=== PATIENT | male | born 1935 | race Caucasian/White ===

== ENCOUNTER 2017-11-25 05:41 | Observation (INO) | payer OTHER ==
[2017-11-25] MEDS ORDERED: morphINE PF 5 MG/10 ML INJ IT ONE (06:16)
[2017-11-25] MEDS ORDERED: ceFAZolin 2 GM/SWFI 2 GM/20 ML SYR IVP ONE (06:16)
[2017-11-25] MEDS ORDERED: GABAPENTIN 300 MG CAP PO ONE (06:16)
[2017-11-25] MEDS ORDERED: ACETAMINOPHEN 500 MG TAB PO ONE (06:16)
[2017-11-25] MEDS ORDERED: LR 1,000 ML IV ONE (06:24)
--- NOTE | 2017-11-25 06:40 | CPEKG ---
Heart Rate: 123 RR Interval: 488 QRSD Interval: 82 QT Interval: 324 QTC Interval: 464 QRS Jackson: 47 T Wave Jackson: 42 EKG Severity - ABNORMAL ECG - EKG Impression: ATRIAL FIBRILLATION, V-RATE 94-169 Electronically Signed By: Wilbur Osborn 26-Nov-2017 17:28:21
[2017-11-25] MEDS ORDERED: THROMBIN (BOVINE) 20,000 UNIT VIAL TP ONE (07:08)
[2017-11-25] MEDS ORDERED: CHLORHEXIDINE GLUC HIBICLENS 118 ML BTL TP ONE (07:08)
[2017-11-25] MEDS ORDERED: CITRATE DEXTROSE SOLN 500 ML BAG ONE (07:09)
[2017-11-25] MEDS ORDERED: BUPIVACAINE 0.25% 30 ML SDV ONE (07:09)
[2017-11-25] MEDS ORDERED: BACITRACIN 50,000 UNITS/10 ML SYR IRR ONE (07:09)
--- NOTE | 2017-11-25 07:29 | PDHPUP ---
History & Physical Update H&P update statement: This history and physical update is based on an assessment of the patient which was completed after admission or registration (within 24 hours), but prior to the surgery/procedure. H&P update: H&P reviewed & patient examined H&P changes: The patient was found to be in a fib this morning on the monitor technician without any symptoms. Cardiology has been called and we will make a determination on surgery based on his cardiac findings.
[2017-11-25 08:02] LABS: PLATELET COUNT 194 10^3/uL (150-400)
--- NOTE | 2017-11-25 09:42 | PDHPUP ---
History & Physical Update H&P update statement: This history and physical update is based on an assessment of the patient which was completed after admission or registration (within 24 hours), but prior to the surgery/procedure. H&P update: H&P reviewed & patient examined (I spoke with Cardiology Dr Ashley and they will send him on on medications for rate control, including anti- coagulation. We will reschedule him for surgery in a few weeks when he has been cleared. They understand and all questions answered.)
--- NOTE | 2017-11-25 10:15 | ECHO ---
[email or web address] [address] [address] Main: [phone] Fax: Transthoracic Echocardiogram Name: JESSICA LEMOS MR#: [id number] Study Date: 11/25/2017 Study Time: 09:04 AM Date of : 1935 Age: 82 year(s) Height: 182.9 cm (72 in.) Weight: 78.93 kg (174 lb.) BSA: 2.01 m2 Gender: Male Examination: Echo Indication: New onset Atrial Fibrillation, Pre op back surgery Image Quality: Contrast: Requested by: Jami Owens BP: 122 mmHg/77 mmHg Heart Rate: Rhythm: Atrial fibrillation Indication: New onset Atrial Fibrillation, Pre op back surgery Procedure Staff Workcell Operator: Jarrett Kerns [facility] Reading Physician: Stephanie Ashley Requesting Provider: Chapin Levin Conclusions: Normal size left ventricle. No LV hypertrophy. Normal global systolic LV function. EF is 70 %. No regional wall motion abnormality. The rhythm is atrial fibrillation.. Mildly dilated right ventricle. Normal RV function. Trivial to mild mitral regurgitation. No prior echo Measurements: Chambers Valvular Assessment AV/MV Valvular Assessment TV/PV Normal Normal Normal Name Value Range Name Value Range Name Value Range Ao Laly (MM): 2.9 cm (2.2 cm-3.7 AV Vmax: 1.15 m/s (1 m/s-1.7 PV Vmax: 0.80 m/s (0.6 m/s-0.9 cm) m/s) m/s) IVSd (2D): 1.0 cm (0.6 cm-1.1 AV maxP mmHg ( - ) PV PGmax: 3 mmHg ( - ) cm) LVOT Vmax: 0.91 m/s (0.7 m/s-1.1 LVDd (2D): 3.5 cm (4.2 cm-5.9 m/s) cm) MV E Vmax: 0.72 m/s ( - ) LVDs (2D): 2.1 cm (2.1 cm-4 cm) LVPWd (2D): 1.2 cm (0.6 cm-1 cm) LVEF (2D): 70 (>=54 %) Continued Measurements: Chambers Valvular Assessment AV/MV Patient: JESSICA LEMOS Study Date: 11/25/2017 Page 1 of 2 09:04 AM Name Value Name Value LADs: 2.6 cm MV E' Septal: 0.04 m/s LADs Lon.5 cm MV E/E' Septal: 19.00 LA Area: 19.1 cm2 MV E/E' Lateral: 16.80 LA Volume: 52 ml LA Volume Index: 25.9 ml/m2 Findings: Left Ventricle: Normal size left ventricle. No LV hypertrophy. Normal global systolic LV function. EF is 70 %. No regional wall motion abnormality. The rhythm is atrial fibrillation.. Right Ventricle: Mildly dilated right ventricle. Normal RV function. Left Atrium: The left atrium is normal in size. Right Atrium: The right atrium is normal in size. Mitral Valve: The mitral valve is normal in appearance and function. Trivial to mild mitral regurgitation. Aortic Valve: The aortic valve is tri-leaflet. The aortic valve is normal in appearance. There is no aortic valve regurgitation. Tricuspid Valve: The tricuspid valve is normal in appearance and function. Trivial tricuspid valve regurgitation. Pulmonic Valve: The pulmonic valve is normal in appearance and function. Aorta: The aorta is normal. Pericardium: No pericardial effusion. Exam Comments: The heart rate during the exam is 150-160 bpm. (No Signature Object) Patient: JESSICA LEMOS Study Date: 11/25/2017 Page 2 of 2 09:04 AM [id number]
[2017-11-25] MEDS ORDERED: oxyCODONE IR 5 MG TAB PO PRN (10:38)
[2017-11-25] MEDS ORDERED: ONDANSETRON 4 MG/2 ML VIAL IVP ONE (11:30)
[2017-11-25] MEDS: METOPROLOL TARTRATE 25 MG TAB PO SCH ×2 (11:50→21:12)
[2017-11-25] MEDS ORDERED: ONDANSETRON 4 MG/2 ML VIAL IVP PRN (13:31)
[2017-11-25] MEDS ORDERED: PROMETHAZINE HCL 25 MG TAB PO PRN (13:35)
[2017-11-25 14:08] LABS: INR 1.03 (0.83-1.16); PROTIME(PATIENT) 13.7 SEC (12.0-15.0)
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
[2017-11-25] MEDS ORDERED: DIGOXIN 500 MCG/2 ML AMP IVP ONE (14:22)
[2017-11-25 14:24] LABS: CREATINE KINASE 51 IU/L (0-224)
[2017-11-25] MEDS: APIXABAN 5 MG TAB PO SCH (21:12)
[2017-11-26] MEDS: APIXABAN 5 MG TAB PO SCH (07:58)
[2017-11-26] MEDS: METOPROLOL TARTRATE 25 MG TAB PO SCH (07:58)
--- NOTE | 2017-11-26 10:09 | ASMTCASEMG ---
Living Arrangements What is your living Answers: With Spouse arrangement? Who do you live with? Type Of Residence What kind of residence do Answers: House you live in? Discharge Plan Comments Coordination Status Comments Notes: Pt is a 82 y/o man admitted for radiculopathy and spondylosis. A stress test has been ordered. Pt will most likely d/c independent when medically stable. No therapies ordered at this time. CM available for changes. Plan: Independent Date Signed: 11/26/2017 10:09 AM Electronically Signed By:BRANDI Nix
[2017-11-26] MEDS ORDERED: REGADENOSON 0.4 MG/5 ML SYR IVP ONE (11:10)
[2017-11-26 12:18] VITALS: O2SAT 94
--- NOTE | 2017-11-26 12:32 | PDCARST ---
CAR Stress Test Results Type of Stress Test: Lexiscan stress test Indication: elevated trop/AF Description of Procedure: After informed consent was obtained, pt was established to ECG, blood pressure, HR and oximetry monitoring. STRESS EKG AND HEMODYNAMIC DATA. Resting heart rate: 54 BPM. Resting ECG: SR. Resting blood pressure: 130/70 mmHg. O2 saturation at rest: 94%. Peak heart rate: 84 BPM. Peak blood pressure: 110/54 mmHg. Arrhythmias: none. Symptoms: The patient experienced no typical symptoms of angina during stress or recovery. Stress/Infusion ECG: No change in rhythm with no significant ST/T wave changes. Stress/infusion O2 saturation: 93% Impression: Uneventful Lexiscan infusion. Conclusion: Await nuclear images.
[2017-11-26] MEDS ORDERED: ACETAMINOPHEN 325 MG TAB PO PRN (12:37)
[2017-11-26] MEDS ORDERED: METHOCARBAMOL 750 MG TAB PO PRN (12:37)
[2017-11-26 13:00] VITALS: BP 107/60; PULSE 56; RESP 16; TEMP 97.7
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
[2017-11-26] MEDS ORDERED: PANTOPRAZOLE SODIUM 40 MG TAB PO SCH (21:00)
[2017-11-26] MEDS ORDERED: ASPIRIN 81 MG CHEWABLE TAB PO SCH (21:00)
[2017-11-26] MEDS ORDERED: NON-FORMULARY NEW DRUG (Esomeprazole Mag Trihydrate [Nexium] 40 MG) PO SCH (21:00)
[2017-11-26] MEDS ORDERED: BUDESONIDE/FORMOTEROL 160/4.5 60 PUFFS/MDI IH SCH (21:00)
[2017-11-26] MEDS ORDERED: PRAVASTATIN SODIUM 40 MG TAB PO SCH (21:00)
[2017-11-27] MEDS ORDERED: ASCORBIC ACID 500 MG TAB PO SCH (09:00)
== END 2017-11-26 15:30 | disposition home or self-care (01) ==
LOC: INTOOBSV 05:41 → F3N 05:41 → F2W 12:58
PROVIDERS: ADMIT Neurological Surgery; ATTEND Internal Medicine Cardiovascular Disease
DX: I48.91 Unspecified atrial fibrillation (principal); M51.16 Intervertebral disc disorders with radiculopathy, lumbar region; M47.26 Other spondylosis with radiculopathy, lumbar region; Z53.8 Procedure and treatment not carried out for other reasons; E78.5 Hyperlipidemia, unspecified; J84.9 Interstitial pulmonary disease, unspecified; Z87.81 Personal history of (healed) traumatic fracture; Z98.1 Arthrodesis status; Z82.49 Family history of ischemic heart disease and other diseases of the circulatory system; H53.2 Diplopia; B02.9 Zoster without complications
CPT/HCPCS: 70450; 78452; 93005; 93017; 93306; A9500; G0378; J0690; J2405; J2785; J0171; J2274; J7060

== ENCOUNTER 2017-12-16 07:15 | Inpatient (IN) | payer OTHER ==
[2017-12-16] MEDS ORDERED: ceFAZolin 2 GM/SWFI 2 GM/20 ML SYR IVP ONE (10:09)
[2017-12-16] MEDS ORDERED: morphINE PF 5 MG/10 ML INJ IT ONE (10:09)
[2017-12-16] MEDS ORDERED: ACETAMINOPHEN 500 MG TAB PO ONE (10:09)
[2017-12-16] MEDS ORDERED: GABAPENTIN 300 MG CAP PO ONE (10:09)
[2017-12-16] MEDS ORDERED: LR 1,000 ML IV ONE (10:10)
--- NOTE | 2017-12-16 10:19 | PDANEPAE ---
ANE History of Present Illness 82 year old male presents for Right L4/L5 TLIF w/ fusion. Patient's surgery cancelled a couple weeks ago following new onset A.Fib w/ RVR. Patient has undergone cardiac work-up and clearance since that time. ANE Past Medical History - Cardiovascular History Hx Hypertension: No Hx Arrhythmias: Yes Hx Chest Pain: No Hx Coronary Artery / Peripheral Vascular Disease: No Hx CHF / Valvular Disease: No Hx Palpitations: No Cardiovascular History Comment: afib on admit 11/25/17. admitted and worked up. hyperlipidemia. eliquis to be stopped 5 days prior to surgery - Pulmonary History Hx COPD: No Hx Asthma/Reactive Airway Disease: No Hx Recent Upper Respiratory Infection: No Hx Oxygen in Use at Home: No Hx Sleep Apnea: No Sleep Apnea Screening Result - Last Documented: Negative Pulmonary History Comment: Interstitial lung disease. hx of pulmonary nodules. recent bronchitis. no sob - Neurologic History Hx Cerebrovascular Accident: No Hx Seizures: No Hx Dementia: No - Endocrine History Hx Diabetes: No Endocrine History Comment: pre-diabetic - Renal History Hx Renal Disorders: No - Liver History Hx Hepatic Disorders: No - Neurological & Psychiatric Hx Hx Neurological and Psychiatric Disorders: No - Cancer History Hx Cancer: No - Congenital Disorder History Hx Congenital Disorders: No - GI History Hx Gastrointestinal Disorders: Yes Gastrointestinal History Comment: GERD - Other Health History Other Health History: none - Chronic Pain History Chronic Pain: No - Surgical History Prior Surgeries: with previous attempt at this surgery 11/25/17 pt was in afib and amitted to hospital. BACK SURGERY 7 YRS AGO. HERNIA REPAIR 20 YRS AGO ANE Review of Systems Review of systems is: negative Review of Systems: - Exercise capacity Exercise capacity: >=4 METS METS (RN): 4 METS ANE Patient History - Allergies Allergies/Adverse Reactions: No Known Allergies Allergy (Verified 12/08/17 11:47) - Home Medications Home medications: home medication list seen and reviewed Home Medications: Ascorbic Acid [Vitamin C 500 mg (*)] 500 mg PO DAILY 01/09/14 [Last Taken ] Budesonide/Formoterol 160/4.5 [Symbicort 160-4.5 Mcg Inh (*)] 1 puffs IH HS 03/19 [Last Taken 12/15/17] Esomeprazole Mag Trihydrate [Nexium] 40 mg PO DAILY 04/06/14 [Last Taken ] Methocarbamol [Robaxin 750 mg (*)] 750 mg PO DAILY PRN 11/24/17 [Last Taken 09/22] Pravastatin Sodium 40 mg PO HS 11/24/17 [Last Taken 12/15/17] Herbals/Supplements -Info Only 1 ea PO DAILY 11/25/17 [Last Taken Unknown] - NPO status NPO Status: no food or drink >8 hours - Anes Hx Anes Hx: no prior problems - Smoking Hx Smoking Status: Never smoked Marijuana use: No - Alcohol Use Alcohol Use: Rarely - Family Anes Hx Family Anes Hx: neg - N/A Family Hx Anesthesia Complications: none ANE Labs/Vital Signs - Vital Signs Vital Signs: reviewed preoperatively; see RN documention for details Height: 182.88 cm Weight: 78.925 kg ANE Physical Exam - Airway Neck exam: decreased ROM Mallampati Score: Class 2 Mouth exam: normal dental/mouth exam, abnormal chin - Pulmonary Pulmonary: no respiratory distress - Cardiovascular Cardiovascular: regular rate and rhythym - ASA Status ASA Status: III ANE Anesthesia Plan Anesthesia Plan: general endotracheal anesthesia Lines/Monitors: arterial line Total IV Anesthesia: No
[2017-12-16] MEDS ORDERED: THROMBIN (BOVINE) 20,000 UNIT VIAL TP ONE (10:22)
[2017-12-16] MEDS ORDERED: CHLORHEXIDINE GLUC HIBICLENS 118 ML BTL TP ONE (10:22)
[2017-12-16] MEDS ORDERED: CITRATE DEXTROSE SOLN 500 ML BAG ONE (10:23)
[2017-12-16] MEDS ORDERED: BUPIVACAINE 0.25% 30 ML SDV ONE (10:23)
[2017-12-16] MEDS ORDERED: BACITRACIN 50,000 UNITS/10 ML SYR IRR ONE (10:24)
--- NOTE | 2017-12-16 12:23 | PDHPUP ---
History & Physical Update H&P update statement: This history and physical update is based on an assessment of the patient which was completed after admission or registration (within 24 hours), but prior to the surgery/procedure. H&P update: H&P reviewed & patient examined, changes noted (Consents signed and site marked. He had a fib before his last case which was then rescheduled after Cardiac clearance. All questions answered.)
[2017-12-16] MEDS ORDERED: PROPOFOL 200 MG/20 ML VIAL ONE (12:32)
[2017-12-16] MEDS ORDERED: REMIFENTANIL HCL 1 MG VIAL ONE (12:32)
[2017-12-16] MEDS ORDERED: PROPOFOL/EMULSION 500 MG/50 ML BOTTLE IV ONE (12:32)
[2017-12-16] MEDS ORDERED: fentaNYL 100 MCG/2 ML INJ ONE ×2 (12:32→16:28)
[2017-12-16] MEDS ORDERED: ROCURONIUM 50 MG/5 ML VIAL ONE ×2 (13:29)
[2017-12-16] MEDS ORDERED: ONDANSETRON 4 MG/2 ML VIAL ONE (14:58)
[2017-12-16] MEDS ORDERED: DEXAMETHASONE 4 MG/ML VIAL ONE (14:59)
[2017-12-16] MEDS ORDERED: SUGAMMADEX SODIUM 200 MG/2 ML VIAL IVP ONE (15:31)
[2017-12-16] MEDS ORDERED: LR 500 ML IV PRN (16:22)
[2017-12-16] MEDS ORDERED: DIAZEPAM 5 MG/ML 1 ML SYR IVP PRN (16:22)
[2017-12-16] MEDS ORDERED: HYDROmorphONE/DILAUDID 2 MG/ML INJ IVP PRN ×2 (16:22→16:55)
[2017-12-16] MEDS ORDERED: ONDANSETRON 4 MG/2 ML VIAL IVP PRN ×2 (16:22→16:55)
[2017-12-16] MEDS ORDERED: PHENYLEPHRINE HCL 100 MCG/ML SYR IVP PRN (16:22)
[2017-12-16] MEDS ORDERED: NALOXONE HCL 0.4 MG/ML INJ IVP PRN (16:22)
[2017-12-16] MEDS ORDERED: HYDROmorphONE/DILAUDID 2 MG/ML INJ ONE (16:28)
[2017-12-16] MEDS: fentaNYL 100 MCG/2 ML INJ IVP PRN ×2 (16:29→16:38)
[2017-12-16] MEDS ORDERED: DIAZEPAM 5 MG/ML 1 ML SYR ONE (16:40)
[2017-12-16] MEDS ORDERED: MAGNESIUM HYDROXIDE 30 ML UDCUP PO PRN (16:55)
[2017-12-16] MEDS ORDERED: BISACODYL 10 MG SUPP PR PRN (16:55)
[2017-12-16] MEDS ORDERED: POLYETHYLENE GLYCOL 3350 17 GM PKT PO PRN (16:55)
[2017-12-16] MEDS ORDERED: LACTULOSE 20 GM/30 ML UDCUP PO PRN (16:55)
[2017-12-16] MEDS ORDERED: ONDANSETRON DISINTEGRATING 4 MG TAB PO PRN (16:55)
[2017-12-16] MEDS ORDERED: NS W/ 20 KCl/L 1,000 ML IV SCH (17:00)
--- NOTE | 2017-12-16 17:15 | POSTOPPROG ---
Post Op Note Date of Operation: 12/16/17 Surgeon: Paige Parnell Hardware Engineer: Gordo Parnell PA-C Anesthesiologist: Corey Anesthesia: GET(General Endotracheal) Pre-op Diagnosis: lumbar degenerative disc disease Post-op Diagnosis: same Indication: right leg radiculopathy Procedure: redo right L45 TLIF and posterior fusion Findings: nerve compression Inf/Abcess present in the surg proc area at time of surgery?: No Depth: Organ Space EBL: 100-500 Complications: none Drains: Cesar Castro Specimen(s): none PA Addendum - Addendum .: S: Pt awake in PACU, denies pain O: AAOx3 NAD VSS MAEx4 Motor 5/5 BLE +LT Incision dressed cdi JPx1 Briones in A: 82 yo M s/p redo right L45 TLIF and posterior fusion P: PT/OT Pain management Brace when OOB TEDs, SCDs, lovenox POD#1, can resume eliquis POD#7 after surgery Post op xrays pending Follow LAINE output SEAMUS briones in AM D/w Dr Levin Call NS with any questions
[2017-12-16] MEDS: SENNOSIDES/DOCUSATE SODIUM TAB PO SCH (20:07)
[2017-12-16] MEDS: FAMOTIDINE 20 MG TAB PO SCH (20:07)
[2017-12-16] MEDS: PRAVASTATIN SODIUM 40 MG TAB PO SCH (20:08)
[2017-12-16] MEDS: METOPROLOL TARTRATE 25 MG TAB PO SCH (20:08)
--- NOTE | 2017-12-16 21:26 | GOP ---
[f rep st] OPERATIVE REPORT DATE OF OPERATION: 12/16/2017 SURGEON: Chapin Levin MD STUNNER ANIMAL: Paige Parnell, PRIYANKA. ANESTHESIA: General. PREOPERATIVE DIAGNOSIS: 1. Right-sided L4-L5 lateral recess foraminal stenosis. 2. Right lower extremity radiculopathy. 3. History of prior right-sided L4-5 decompression. 4. Treatment refractory to nonoperative intervention. POSTOPERATIVE DIAGNOSIS: 1. Right-sided L4-L5 lateral recess foraminal stenosis. 2. Right lower extremity radiculopathy. 3. History of prior right-sided L4-5 decompression. 4. Treatment refractory to nonoperative intervention. PROCEDURE PERFORMED: 1. Posterior arthrodesis with approach to L4-L5. 2. Posterolateral fusion with bilateral pedicle screw placement at L4-L5 with a [employer] 4.7 5 system. 3. Redo right-sided hemilaminotomy with mesial facetectomy, foraminotomy, nerve decompression. 4. Right-sided L4-5 transforaminal lumbar interbody fusion with a [employer] Elite expandable titani um cage filled with morselized autograft and allograft. 5. Posterolateral fusion on the left between L4-L5 with morselized autograft and allograft. 6. Use of intraoperative 3D Stealth navigation. 7. Use of intraoperative fluoroscopy, less than 1 hour physician time. 8. Use of neuromonitoring. 9. Use of operative microscope. 10. Injection of preservative-free intrathecal narcotics. FINDINGS: SPECIMENS: None. ESTIMATED BLOOD LOSS: 100 mL. INDICATIONS: The patient is a gentleman who has undergone a prior right-sided L4-L5 hemilaminotomy w ith foraminotomy nerve decompression. The patient did quite well for a few weeks and then was worsen ing signs and symptoms. Imaging demonstrated continued lateral recess foraminal stenosis on the righ t at L4-5. After discussion of the risks, benefits, and alternatives after failing nonoperative inte rvention, we decided to proceed forth with surgery as described above. DESCRIPTION OF PROCEDURE: Patient was brought to the operating theater and underwent general endotra cheal anesthesia without complication. He had Venodynes, STELLA hose and appropriate lines placed by An esthesia. He was then flipped prone onto the Cesar table and all bony prominences inspected and pa dded. The lower lumbar previous incision was identified and infiltrated with Marcaine with epinephri ne. The incision was taken down with the scalpel blade and then using monopolar, taken down to the m idline through the lumbodorsal fascia. Subperiosteal dissection carried to the transverse process bi laterally at L4, L5. Deep retractors were placed to maintain our exposure. We attached the 3D Steal th navigation clamp to the spinous process of L4 and completed a 3D Stealth navigation spin. Using 3 D Stealth navigation, we placed the senior formulation scientist holes for the bilateral pedicle screws in L4, L5. All hole s were manually palpated with no evidence of any cortical breaches. We then tapped and placed 6.5 x 45 mm screws into the left side L4 and L5, and a 6.5 x 50 mm screw on the right L4 and L5 with [employer] 4.75 system. Another 3D Stealth navigation spin demonstrated good placement of the hardwa re. At this point, the microscope was brought into the field to assist with microscopic dissection a nd maintain illumination and magnification. Using a combination of bur tip on the drill bit and Leija krista punches, we completed a redo right-sided L4-5 hemilaminotomy with aggressive facetectomy. We co mpleted a foraminotomy and resected the scar tissue from the thecal sac and retracted it medially. T he nerve root was noted to be quite decompressed at this level. We then completed a right-sided L4-5 diskectomy after distracting the interspace. We prepared the cartilaginous endplates and measured i nterbody space. We then placed an 8 to 11 mm x 28 mm [employer]ine[employer] Elite expandable titanium cage fille d with morselized allograft and autograft anteriorly towards the midline. We packed additional morce llized autograft in the disk space with interbody fusion. We let down distraction, decorticated the bone on the left side between L4 and L5. The wound was irrigated copiously with bacitracin irrigatio n. We injected preservative-free intrathecal narcotics. We placed 2 lordotic rods into the heads of the screws between L4-L5 and secured them down with cap screws, which were then tightened per the ia kitar's setting. We placed morselized autograft and allograft in the left side between L4-5 at the posterolateral fusion. A drain was left in the subfascial space and the wound then closed in mul tiple layers using Vicryl sutures in deep layers and Dermabond for the skin. The patient's wounds we re dressed sterilely. He was then flipped supine onto the transfer cart. He was awakened, extubated , and taken to the recovery room in stable condition. There were no complications and no noted changes on neuromonitoring throughout the procedure. COMPLICATIONS: None. /[id number]/MODL
[2017-12-16] MEDS: BUDESONIDE/FORMOTEROL 160/4.5 60 PUFFS/MDI IH SCH (21:33)
[2017-12-16] MEDS: ACETAMINOPHEN 500 MG TAB PO SCH (23:02)
[2017-12-16] MEDS: POLYETHYLENE GLYCOL 3350 17 GM PKT PO SCH (23:19)
[2017-12-17] MEDS: ACETAMINOPHEN 500 MG TAB PO SCH ×3 (05:21→21:12)
[2017-12-17] MEDS: FAMOTIDINE 20 MG TAB PO SCH ×2 (08:15→21:11)
[2017-12-17] MEDS: ASCORBIC ACID 500 MG TAB PO SCH (08:17)
[2017-12-17] MEDS: PANTOPRAZOLE SODIUM 40 MG TAB PO SCH (08:18)
[2017-12-17] MEDS: METOPROLOL TARTRATE 25 MG TAB PO SCH ×2 (08:31→21:13)
[2017-12-17] MEDS: POLYETHYLENE GLYCOL 3350 17 GM PKT PO SCH ×3 (08:31→21:10)
[2017-12-17] MEDS: SENNOSIDES/DOCUSATE SODIUM TAB PO SCH ×2 (08:31→21:12)
--- NOTE | 2017-12-17 10:15 | NEUSURGPN ---
Assessment/Plan: S: Doing great, currently no back pain or leg pain. Eating, drinking, voiding well. O: AAOx3 NAD VSS MAEx4 Motor 5/5 BLE +LT Incision dressed cdi JPx1 output 260 overnight A: 82 yo M POD #1 redo right L45 TLIF and posterior fusion P: PT/OT Pain management Brace when OOB TEDs, SCDs, lovenox to start today, can resume eliquis POD#7 after surgery Post op xrays pending today Remove LAINE tomorrow- keep today Astorga out D/w Dr Levin Call NS with any questions Catheter Insertion Date: 12/16/17 - Physician Discussed Patient with : Ollie Neurosurgery Physical Exam - Vitals, I&O, Labs I and O 12/16/17 12/17/17 12/18/17 05:59 05:59 05:59 Intake Total 3575 Output Total 1835 920 Balance 1740 -920 Weight 78.925 kg Intake: Oral (ml) 1875 IV Intake (ml) 1700 Output: Urine (ml) 1500 850 Catheter 1500 850 Estimated Blood Loss (ml) 75 LAINE Drain Output (ml) 260 70 Left Back Cesar Castro 260 70 Other: Intake Quantity Yes Sufficient Number of Voids Catheter 1 Vital Signs Temp Pulse Resp BP Pulse Ox 36.6 C 55 L 16 91/59 L 96 12/17/17 07:31 12/17/17 08:31 12/17/17 07:31 12/17/17 08:31 12/17/17 07:31 ICD10 Worksheet Patient Problems: Problems Problem Status Onset Afib Acute Compression fracture Acute
--- NOTE | 2017-12-17 11:07 | PDMN ---
Medical Necessity Medical necessity: IP surgery per [facility] cpt [id number]
[2017-12-17] MEDS: diphenhydrAMINE 25 MG CAP PO PRN ×2 (11:11→21:11)
[2017-12-17] MEDS: METHOCARBAMOL 750 MG TAB PO PRN ×2 (11:18→18:51)
--- NOTE | 2017-12-17 11:45 | ASMTCMCOM ---
CM Note CM Note Notes: Patient is POD #1 redo R L4-5 TLIF and posterior fusion. He has a LAINE drain which should be removed tomorrow. Initial PT eval recommends home with supportive family. Patient lives with his and has a daughter nearby. Case Management will follow should any discharge needs arise. Date Signed: 12/17/2017 11:44 AM Electronically Signed By:Nan Hogue RN
--- NOTE | 2017-12-17 13:38 | POSTANESTH ---
Post Anesthetic Evaluation Cardiovascular Status: Normal, Stable, Similar to Pre-Op Cond Respiratory Status: Normal, Stable, Similar to Pre-op Cond. Level of Consciousness/Mental Status: Can Participate in Eval, Alert and Oriented Pain Control: Adequate, Prn Tx Ordered Nausea/Vomiting Control: Adequate, Prn Tx Ordered Complications Possibly Related to Anesthesia: None Noted (Patient doing exceptionally well in PACU prior to discharge to the floor. Patient very thankful to all the care he had received from the [facility] team.)
[2017-12-17] MEDS ORDERED: CALCIUM CARBONATE 500 MG CHEWABLE TAB PO PRN (17:51)
[2017-12-17] MEDS: oxyCODONE IR 5 MG TAB PO PRN ×2 (17:56→18:50)
[2017-12-17] MEDS: ENOXAPARIN 40 MG/0.4 ML SYR SC SCH (18:20)
[2017-12-17] MEDS: BUDESONIDE/FORMOTEROL 160/4.5 60 PUFFS/MDI IH SCH (20:40)
[2017-12-17] MEDS: PRAVASTATIN SODIUM 40 MG TAB PO SCH (21:14)
[2017-12-18] MEDS: ACETAMINOPHEN 500 MG TAB PO SCH ×3 (06:01→22:16)
[2017-12-18] MEDS: oxyCODONE IR 5 MG TAB PO PRN ×3 (06:02→17:50)
[2017-12-18] MEDS: METHOCARBAMOL 750 MG TAB PO PRN ×2 (06:02→23:17)
--- NOTE | 2017-12-18 07:06 | NEUSURGPN ---
Date of Surgery: 12/16/17 Post Op Day: 2 Assessment/Plan: Assessment: 82 yo M POD #2 redo right L45 TLIF and posterior fusion Plan: -continue PT/OT -pain management still being finalized -brace when OOB -TEDs, SCDs, on lovenox, can resume Eliquis POD#7 after surgery -post op xrays look fine -remove LAINE today-order in place -briones out-voiding well -D/w Dr Levin -call NS with any questions -dc traffic and transport planner to see for placement Subjective: Awake and alert. Pt with some incisional back pain. Pt with RLE pain that is better. No lee/neck/chest/abd or gu complaints. Objective: AAOx3 NAD AFVSS MAEx4 Motor 5/5 BLE +LT Incision dressed cdi Neuro Check Frequency: per routine Urinary Catheter in Place: No Catheter Insertion Date: 12/16/17 - Physician Discussed Patient with : Ollie Neurosurgery Physical Exam - Vitals, I&O, Labs I and O 12/17/17 12/18/17 12/19/17 05:59 05:59 05:59 Intake Total 3575 1999 Output Total 1835 2725 Balance 1740 -725 Weight 78.925 kg Intake: Oral (ml) 1875 2000 IV Intake (ml) 1700 Output: Urine (ml) 1500 2575 Catheter 1500 1925 Urinal 650 Estimated Blood Loss (ml) 75 LAINE Drain Output (ml) 260 150 Left Back Cesar Castro 260 150 Other: Intake Quantity Yes Yes Sufficient Number of Voids Catheter 1 1 Urinal 1 Bladder Scan Volume (ml) Catheter 821 Vital Signs Temp Pulse Resp BP Pulse Ox 36.8 C 61 16 101/52 L 95 12/18/17 03:10 12/18/17 03:10 12/18/17 03:10 12/18/17 03:10 12/18/17 03:10 ICD10 Worksheet Patient Problems: Problems Problem Status Onset Afib Acute Compression fracture Acute
--- NOTE | 2017-12-18 09:28 | ASMTCMCOM ---
CM Note CM Note Notes: OT/PT continue to rec home w family support. Spoke w pt RN Delores who has no concerns. This CM spoke w pt and and they are not interested in a SNF d/c. Anticipate pt will d/c when medically stable. No CM d/c needs identified at this time. CM available for changes/needs. Date Signed: 12/18/2017 09:28 AM Electronically Signed By:NIKO Rodriguez
[2017-12-18] MEDS: FAMOTIDINE 20 MG TAB PO SCH ×2 (11:54→22:16)
[2017-12-18] MEDS: ENOXAPARIN 40 MG/0.4 ML SYR SC SCH (11:54)
[2017-12-18] MEDS: ASCORBIC ACID 500 MG TAB PO SCH (11:54)
[2017-12-18] MEDS: POLYETHYLENE GLYCOL 3350 17 GM PKT PO SCH ×3 (11:54→22:17)
[2017-12-18] MEDS: SENNOSIDES/DOCUSATE SODIUM TAB PO SCH ×2 (11:55→22:16)
[2017-12-18] MEDS: PANTOPRAZOLE SODIUM 40 MG TAB PO SCH (11:55)
[2017-12-18] MEDS: METOPROLOL TARTRATE 25 MG TAB PO SCH ×2 (12:25→22:14)
[2017-12-18] MEDS: PRAVASTATIN SODIUM 40 MG TAB PO SCH (22:16)
[2017-12-19] MEDS: BUDESONIDE/FORMOTEROL 160/4.5 60 PUFFS/MDI IH SCH (00:19)
[2017-12-19] MEDS: oxyCODONE IR 5 MG TAB PO PRN ×2 (01:12→08:09)
[2017-12-19] MEDS: ACETAMINOPHEN 500 MG TAB PO SCH (05:56)
[2017-12-19 07:57] VITALS: BP 98/48; PULSE 65; RESP 14; TEMP 97.5; O2SAT 91
[2017-12-19] MEDS: FAMOTIDINE 20 MG TAB PO SCH (08:09)
[2017-12-19] MEDS: ENOXAPARIN 40 MG/0.4 ML SYR SC SCH (08:09)
[2017-12-19] MEDS: SENNOSIDES/DOCUSATE SODIUM TAB PO SCH (08:10)
[2017-12-19] MEDS: ASCORBIC ACID 500 MG TAB PO SCH (08:10)
[2017-12-19] MEDS: PANTOPRAZOLE SODIUM 40 MG TAB PO SCH (08:10)
[2017-12-19] MEDS: METOPROLOL TARTRATE 25 MG TAB PO SCH (08:14)
--- NOTE | 2017-12-19 09:15 | NEUSURGPN ---
Assessment/Plan: Assessment: 82 yo M POD #3 redo right L45 TLIF and posterior fusion Plan: -continue PT/OT -pain management - continue current regimen -brace when OOB -TEDs, SCDs, on lovenox, can resume Eliquis POD#7 after surgery -post op xrays look fine -briones out-voiding well -Pt had severe pain with ambulation and became unsteady on his feet last afternoon just prior to anticipated dc. We were concerned about his severe pain and therefore discharge was held in order to rule out any surgical complications. If patient is improved this morning after therapy evaluation, can work on dc to home today. -call NS with any questions -Pt and his were in agreement and understanding of the plan Subjective: Pt resting at edge of bed working with therapies. States he has more right leg nerve pain now than he did immediately post op, but is able to move ok this AM. Objective: AAOx3 NAD VSS MAEx4 Motor 5/5 BLE +LT Incision cdi Urinary Catheter in Place: No Catheter Insertion Date: 12/16/17 Neurosurgery Physical Exam - Vitals, I&O, Labs I and O 12/18/1718 12/20/17 05:59 05:59 05:59 Intake Total 2000 500 Output Total 2725 1730 Balance -725 -1730 500 Intake: Oral (ml) 2000 500 Output: Urine (ml) 2575 1675 Catheter 1925 Urinal 650 1675 LAINE Drain Output (ml) 150 55 Left Back Cesar Castro 150 55 Other: Intake Quantity Yes Yes Sufficient Number of Voids Catheter 1 Toilet 1 Urinal 1 1 Bladder Scan Volume (ml) Catheter 821 Vital Signs Temp Pulse Resp BP Pulse Ox 36.4 C 65 14 98/48 L 91 L 12/19/17 07:54 12/19/17 08:14 12/19/17 07:54 12/19/17 08:14 12/19/17 07:54 ICD10 Worksheet Patient Problems: Problems Problem Status Onset Afib Acute Compression fracture Acute
[2017-12-19] MEDS: POLYETHYLENE GLYCOL 3350 17 GM PKT PO SCH (09:57)
[2017-12-19] MEDS: METHOCARBAMOL 750 MG TAB PO PRN (10:39)
--- NOTE | 2017-12-19 14:30 | ASMTCMCOM ---
CM Note CM Note Notes: Pt medically stable for d/c, no CM d/c needs identified. Date Signed: 12/19/2017 02:29 PM Electronically Signed By:NIKO Rodriguez
== END 2017-12-19 12:52 | disposition home or self-care (01) | DRG 460 ==
LOC: EEVIPCON 10:02 → F3N 10:02
PROVIDERS: ADMIT Neurological Surgery; ATTEND Neurological Surgery
PROC: 0SG00AJ Fusion of Lumbar Vertebral Joint with Interbody Fusion Device, Posterior Approach, Anterior Column, Open Approach (ICD-10-PCS; principal; 2017-12-16 11:30)
PROC: 4A1004G Monitoring of Central Nervous Electrical Activity, Intraoperative, Open Approach (ICD-10-PCS; principal; 2017-12-16 11:30)
PROC: 8E0WXBZ Computer Assisted Procedure of Trunk Region (ICD-10-PCS; principal; 2017-12-16 11:30)
PROC: 01NB0ZZ Release Lumbar Nerve, Open Approach (ICD-10-PCS; principal; 2017-12-16 11:30)
DX: M51.36 Other intervertebral disc degeneration, lumbar region (principal); M47.26 Other spondylosis with radiculopathy, lumbar region; E78.5 Hyperlipidemia, unspecified; I48.91 Unspecified atrial fibrillation; K21.9 Gastro-esophageal reflux disease without esophagitis; Z79.01 Long term (current) use of anticoagulants
CPT/HCPCS: 97116-GP; 97161-GP; 97165-GO; 97530-GP; 97535-GO; C1713; C1762; G8978-GP-CI; G8979-GP-CI; G8980-GP-CI; G8984-GO-CK; G8985-GO-CI; G8988-GO-CI; G8989-GO-CI; J0171; J0690; J1100; J1170; J1650; J2270; J2274; J2405; J2704; J3010; J3360; J7060

== ENCOUNTER → 2018-01-23 | Outpatient (CLI) | payer OTHER | LOC: FIMAGING 15:25 | PROVIDERS: ATTEND Physician Assistant Surgical | DX: Z09 Encounter for follow-up examination after completed treatment for conditions other than malignant neoplasm (principal); Z98.1 Arthrodesis status ==

== ENCOUNTER → 2018-03-09 | Outpatient (CLI) | payer OTHER | LOC: FIMAGING 16:07 | PROVIDERS: ATTEND Physician Assistant | DX: Z09 Encounter for follow-up examination after completed treatment for conditions other than malignant neoplasm (principal); Z98.1 Arthrodesis status ==

== ENCOUNTER → 2018-06-10 | Outpatient (CLI) | payer OTHER | LOC: FIMAGING 15:29 | PROVIDERS: ATTEND Physician Assistant Surgical | DX: Z09 Encounter for follow-up examination after completed treatment for conditions other than malignant neoplasm (principal); Z98.1 Arthrodesis status; S22.080A Wedge compression fracture of T11-T12 vertebra, initial encounter for closed fracture ==

== ENCOUNTER 2018-09-24 11:34 | Outpatient (CLI) | payer OTHER ==
[2018-09-24] MEDS ORDERED: fentaNYL 100 MCG/2 ML INJ IVP PRN (12:03)
[2018-09-24] MEDS ORDERED: MEPERIDINE 25 MG/ML SYR IVP PRN (12:03)
[2018-09-24] MEDS ORDERED: NALOXONE HCL 0.4 MG/ML INJ IVP PRN (12:03)
[2018-09-24] MEDS ORDERED: MIDAZOLAM 2 MG/2 ML VIAL IVP PRN (12:03)
[2018-09-24] MEDS ORDERED: FLUMAZENIL 0.5 MG/5 ML MDV IVP PRN (12:03)
[2018-09-24] MEDS ORDERED: NS 1,000 ML IV SCH (12:15)
--- NOTE | 2018-09-24 12:42 | PDGENHP ---
History & Physical Chief Complaint: claustro Cardiorespiratory Assessment: RRR, lungs clear
--- NOTE | 2018-09-24 12:42 | PDPROPOC ---
Sedation Plan of Care Sedation Plan of Care: vital signs stable, mental status noted, patient educated of risks, benefits, alternatives, patient can tolerate sedation ASA Classification: ASA 2 Planned drugs: fentanyl, midazolam Mallampati Score: Class 2 Mallampati Reference Image: Patient passed 3-3-2 rule?: Yes
[2018-09-24] MEDS ORDERED: ACETAMINOPHEN 325 MG TAB PO PRN (14:36)
[2018-09-24] MEDS ORDERED: ONDANSETRON 4 MG/2 ML VIAL IVP PRN (14:36)
[2018-09-24 15:07] VITALS: BP 111/64
== END 2018-09-24 14:48 | disposition home or self-care (01) ==
LOC: FIMAGING 11:34
PROVIDERS: ATTEND Family Medicine
DX: M50.81 Other cervical disc disorders, high cervical region (principal); M53.82 Other specified dorsopathies, cervical region
CPT/HCPCS: 72141; 99152; J2250; J3010; J2310

== ENCOUNTER → 2018-11-03 | Outpatient (CLI) | payer OTHER | LOC: FIMAGING 16:21 | PROVIDERS: ATTEND Neurological Surgery | DX: Z09 Encounter for follow-up examination after completed treatment for conditions other than malignant neoplasm (principal); Z98.1 Arthrodesis status; M50.31 Other cervical disc degeneration, high cervical region; S22.080A Wedge compression fracture of T11-T12 vertebra, initial encounter for closed fracture; S22.019A Unspecified fracture of first thoracic vertebra, initial encounter for closed fracture ==

== ENCOUNTER → 2019-01-05 | Outpatient (CLI) | payer OTHER | LOC: FIMAGING 18:19 | PROVIDERS: ATTEND Orthopaedic Surgery Hand Surgery | DX: S63.511A Sprain of carpal joint of right wrist, initial encounter (principal); S63.591A Other specified sprain of right wrist, initial encounter; G56.11 Other lesions of median nerve, right upper limb; M18.11 Unilateral primary osteoarthritis of first carpometacarpal joint, right hand ==